=== PATIENT | male | born 1995 | race Caucasian/White ===

== ENCOUNTER 2019-01-30 14:45 | Observation (INO) ==
[2019-01-30] MEDS ORDERED: Isovue-370 500 ML BOTTLE IVP ONE (18:03)
[2019-01-30] MEDS ORDERED: ceFAZolin 1,000 MG in Water for inj. (sterile) 20 ML 10 ML IVP ONE (18:05)
--- NOTE | 2019-01-30 18:09 | Emergency Department Note ---
Disposition Clinical Impression: Cellulitis Qualifiers: Site of cellulitis: unspecified site Qualified Code(s): L03.90 - Cellulitis, unspecified Disposition: Admitted As Inpatient Condition: Good Extremity Problem HPI - General Chief complaint: ED Extremity Problem,Nontraumatic Stated complaint: left arm cellulitis Time Seen by Provider: 01/30/19 17:54 Source: patient Limitations: no limitations Nursing Notes Reviewed: Yes Vital Signs Reviewed: Yes - History of Present Illness HPI Narrative: The patient presented for evaluation of left upper extremity swelling and cellulitis. I did evaluate this patient [address] patient on Keflex and Bactrim. The patient's tetanus was updated at this time. The markings have significantly increased from previous encircling. Patient is now having a fever. Patient is not tachycardic. Patient is not having nausea or vomiting. Patient is not having other significant signs of infection. Patient does have a fullness to this area. Previous abscess was drained by resident physician to allow for drainage. Patient will undergo CT scan to rule out further abscess or consultations. Patient will receive IV antibiotics and blood cultures. Patient will be admitted for further management of cellulitis failed outpatient manageme nt. Pain Scale: 1 - Related Data Previous Rx's Medication Instructions Recorded Sulfamethoxazole/Trimeth DS 1 each PO BID 7 Days #14 tablet 01/28/19 [Bactrim DS] cephALEXin [Keflex] 500 mg PO QID 7 Days #28 capsule 01/28/19 Allergies Allergy/AdvReac Type Severity Reaction Status Date / Time No Known Allergies Allergy Verified 04/29/18 13:01 All systems ED: reviewed and negative except as stated. Review of Systems: As Per HPI Constitutional: Reports: fever, chills. Denies: weakness ENT ED: Denies: congestion Cardiovascular: Denies: chest pain, palpitations Respiratory: Denies: cough, dyspnea Gastrointestinal: Denies: abdominal pain, nausea Musculoskeletal: Denies: back pain Integumentary: Reports: other (Cellulitis with possible underlying abscess) Endocrine: Denies: fatigue Past Medical History - Past Medical History Medical history: Reports: no medical history - Social History Smoking Status: Unknown if ever smoked Smokeless Tobacco Status: Yes Alcohol use: Reports: occasionally Drug use: Reports: none Physical Exam General appearance: NAD, conversant Eyes: anicteric sclerae, moist conjunctivae HENT: Atraumatic; oropharynx clear with moist mucous membranes Neck: Normal appearance; Trachea midline Chest: Symmetrical chest rise; No respiratory distress Extremities: Cellulitis involving the ventral aspect of the entire left lower forearm extending to the proximal lower arm as well. No involvement of the h and. Neurovascularly intact with equal radial pulses and preserved network intern strength. Skin: Normal temperature, turgor and texture; no rash, ulcers or subcutaneous nodules Psych: Appropriate mood and affect Neuro: Awake and alert - General Limitations: no limitations General appearance: alert, in no apparent distress Course Course Narrative: Failed I&D and outpatient management of cellulitis. Tetanus updated 2 days ago. Patient be admitted for IV antibiotics. Ancef and vancomycin ordered. Vital Signs Temperature 97.8 F 01/30/19 15:08 Pulse Rate 75 01/30/19 15:08 Respiratory Rate 18 01/30/19 15:08 Blood Pressure 124/74 01/30/19 15:08 O2 Sat by Pulse Oximetry 100 01/30/19 15:08 Temperature 98.7 F 01/30/19 23:13 Pulse Rate 71 01/30/19 23:13 Respiratory Rate 18 01/30/19 23:13 Blood Pressure 118/68 01/30/19 23:13 O2 Sat by Pulse Oximetry 99 01/30/19 23:13 Oxygen Delivery Oxygen Delivery Room Air Extremity Problem, Nontraumati - Medical Records Medical records reviewed: Yes I reviewed the patient's medical records. - Lab Data Lab results reviewed: Yes I reviewed the patient's lab results. Result diagrams: 01/30/19 18:13 01/30/19 18:13 Lab Results 01/30/19 01/30/19 Range/Units 18:13 18:13 WBC 11.1 (4.3-11.1) K/mcL RBC 4.79 (4.19-5.50) M/mcL Hgb 14.7 (12.9-16.9) g/dL Hct 43.5 (37.5-50.1) % MCV 90.8 (83.0-100.0) fL MCH 30.7 (28.0-33.3) pg MCHC 33.8 (31.6-35.5) g/dL RDW 11.9 (11.5-14.5) % Plt Count 81 L (140-400) K/mcL MPV 10.8 (9.4-12.4) fL Immature Gran % 0.5 (0-4) % Seg Neutrophils % 70.1 % Lymphocytes % 19.6 % Monocytes % 8.3 % Eosinophils % 0.9 % Basophils % 0.6 % Neutrophils # 7.8 (1.6-8.9) K/mcL Lymphocytes # 2.2 (0.6-4.6) K/mcL Monocytes # 0.9 (0.0-1.3) K/mcL Eosinophils # 0.1 (0.0-0.6) K/mcL Basophils # 0.1 (0.0-0.2) K/mcL Sodium 139 (136-145) mEq/L Potassium 4.0 (3.5-5.1) mEq/L Chloride 103 (98-107) mEq/L Carbon Dioxide 26 (23-29) mEq/L BUN 10 (6-20) mg/dL Creatinine 1.14 (0.70-1.30) mg/dL Est GFR ( Amer) > 60 (> 60) Est GFR (Non-Af Amer) > 60 (> 60) BUN/Creatinine Ratio 9 (6-26) Glucose 95 (70-105) mg/dL Calculated Osmolality 287 (280-300) Calcium 9.5 (8.6-10.3) mg/dL - Radiology Data Radiology results reviewed: Yes I reviewed the patient's radiology results. Upper Extremity CT 01/30/19 18:03 IMPRESSION: 1. Subcutaneous edema involving the soft tissues which is most pronounced at the proximal to mid forearm. Correlate clinically for cellulitis. No organized drainable fluid collection identified. No evidence for subcutaneous gas. 2. No acute osseous abnormality. D/ / Sam León MD / Sam León MD Interpreting Provider: Sam León MD
[2019-01-30 18:25] LABS: Basophils # 0.1 K/mcL (0.0-0.2); Basophils % 0.6 %; Eosinophils # 0.1 K/mcL (0.0-0.6); Eosinophils % 0.9 %; Hematocrit 43.5 % (37.5-50.1); Hemoglobin 14.7 g/dL (12.9-16.9); Immature Granulocytes % 0.5 % (0-4); Lymphocytes # 2.2 K/mcL (0.6-4.6); Lymphocytes % 19.6 %; Mean Corpuscular HGB Conc 33.8 g/dL (31.6-35.5); Mean Corpuscular Hemoglobin 30.7 pg (28.0-33.3); Mean Corpuscular Volume 90.8 fL (83.0-100.0); Mean Platelet Volume 10.8 fL (9.4-12.4); Monocytes # 0.9 K/mcL (0.0-1.3); Monocytes % 8.3 %; Neutrophils # 7.8 K/mcL (1.6-8.9); Red Blood Count 4.79 M/mcL (4.19-5.50); Red Cell Distribution Width 11.9 % (11.5-14.5); Segmented Neutrophils % 70.1 %
[2019-01-30 18:27] LABS: Platelet Count 81 K/mcL (140-400)
[2019-01-30 18:45] LABS: BUN/Creatinine Ratio 9 (6-26); Blood Urea Nitrogen 10 mg/dL (6-20); Calcium 9.5 mg/dL (8.6-10.3); Carbon Dioxide 26 mEq/L (23-29); Chloride 103 mEq/L (98-107); Glucose 95 mg/dL (70-105); Osmolality,Calculated 287 (280-300); Sodium 139 mEq/L (136-145); eGFR For Non-African Americans > 60 (> 60)
[2019-01-30] MEDS ORDERED: traMADol 50 MG TABLET PO PRN (20:48)
[2019-01-30] MEDS ORDERED: *HR* OxyCODONE Immed Rel 5 MG TABLET PO PRN (20:48)
[2019-01-30] MEDS ORDERED: Naloxone 0.4 MG/ML INJ IVP PRN (20:48)
[2019-01-30] MEDS ORDERED: Acetaminophen 325 MG TABLET PO PRN (20:48)
--- NOTE | 2019-01-30 21:05 | Internal Med History&Physical ---
Date of Encounter: 01/30/19 Time of Encounter: 21:03 Internal Medicine - H&P: HPI Chief complaint: arm pain Admitted From: Home Plans for Post Hospital Care: Home History of present illness: John Pickett is a 23 year old man who was seen 2 days ago in the ER for cellulitis of the ventral aspect of his left forearm after cutting himself with a box-cutter, Rx cephalexin & TMP/SMX after having bedside I&D done. No cultures were sent on the purulent material. He returns now with increased swelling and inflammatory signs extending past the previous markings. He also now reports subjective fever. Lab work is grossly within normal limits. Blood cultures were obtained and CT as reviewed by me did not show focal collections. He was given cefazolin and vancomycin. He is now admitted for failure of outpatient therapy. Family history reviewed and found non-contributory. Vitals: Reviewed General: Well-developed white M in NAD. Skin: Warm and supple. HEENT: Moist mucous membranes. No conjunctivae pallor. Neck: No lymphadenopathy. No JVD. No carotid bruits. No palpable thyroid. Chest: Normal thoracic expansion. Normal breath sounds. Clear to auscultation. Heart: Normal S1 & S2; rhythmic. No rubs or murmurs. Abdomen: Non-distended, soft and non-tender to palpation. No peritoneal reaction. Extremities: Left forearm with extensive erythema and warmth with a central monet ration in which there is a 1cm incision. Erythema extends to the flexor aspect of the wrist and to the distal humerus. Normal distal pulses. Neurological: Awake, alert and oriented to person, place and time. No focal deficits. Psych: Affect appropriate. Assessment/Plan Purulent cellulitis: Likely MRSA in etiology. Unfortunately drainage sample cultures were not sent from the incision. Will follow the blood cultures. Keep arm elevated above chest level. Analgesics as needed. High dose vancomycin will be continued. Monitor for extension or regression from the markings. DVT prophylaxis: SubQ heparin ordered. Past Med Surg Social Fam HX - Past Medical History Medical history: no medical history - Social History Smoking Status: Unknown if ever smoked Smokeless Tobacco Status: Yes Alcohol use: occasionally Drug use: none Internal Medicine - H&P: Meds Sulfamethoxazole/Trimeth DS [Bactrim DS] 1 each PO BID 7 Days #14 tablet 01/28/19 [Rx] cephALEXin [Keflex] 500 mg PO QID 7 Days #28 capsule 01/28/19 [Rx] Allergy/AdvReac Type Severity Reaction Status Date / Time No Known Allergies Allergy Verified 04/29/18 13:01 All Systems PM: A 10-system review of systems was performed and is negative for pertinent findings except as documented above in the HPI. - Constitutional Vitals: Temp Pulse Resp BP Pulse Ox 97.8 F 72 16 118/65 100 01/30/19 15:08 01/30/19 20:07 01/30/19 20:07 01/30/19 20:07 01/30/19 20:07 Exam: . Internal Med - H&P Results - Labs CBC & Chem 7: 01/30/19 18:13 01/30/19 18:13 Labs: Short CBC 01/30/19 Range/Units 18:13 WBC 11.1 (4.3-11.1) K/mcL Hgb 14.7 (12.9-16.9) g/dL Hct 43.5 (37.5-50.1) % Plt Count 81 L (140-400) K/mcL Neutrophils # 7.8 (1.6-8.9) K/mcL BMP 01/30/19 18:13 Sodium 139 Potassium 4.0 Chloride 103 Carbon Dioxide 26 BUN 10 Creatinine 1.14 Glucose 95 Calcium 9.5 - Impressions ITS Impressions Upper Extremity CT 01/30/19 18:03 IMPRESSION: 1. Subcutaneous edema involving the soft tissues which is most pronounced at the proximal to mid forearm. Correlate clinically for cellulitis. No organized drainable fluid collection identified. No evidence for subcutaneous gas. 2. No acute osseous abnormality. D/ / Sam León MD / Sam León MD Interpreting Provider: Sam León MD - Time Spent With Patient Total time spent is greater than 50% in coordination of care (as documented) at patient's floor/unit and/or counseling patient: Greater than 35 minutes
[2019-01-30] MEDS: Ringers Solution, Lactated 1,000 ML IVC SCH (22:10)
[2019-01-31] MEDS: *HR* Heparin 5,000 UNIT/ML VIAL SQ SCH ×2 (05:55→17:35)
[2019-01-31] MEDS: Ringers Solution, Lactated 1,000 ML IVC SCH (05:59)
[2019-01-31 07:49] LABS: Immature Granulocytes % 0.3 % (0-4)
[2019-01-31 07:51] LABS: Basophils # 0.1 K/mcL (0.0-0.2); Eosinophils # 0.2 K/mcL (0.0-0.6); Eosinophils % 2.5 %; Hematocrit 39.5 % (37.5-50.1); Hemoglobin 13.2 g/dL (12.9-16.9); Immature Platelets 6.7 % (1.1-6.1); Lymphocytes # 1.9 K/mcL (0.6-4.6); Lymphocytes % 26.1 %; Mean Corpuscular HGB Conc 33.4 g/dL (31.6-35.5); Mean Corpuscular Hemoglobin 30.8 pg (28.0-33.3); Mean Corpuscular Volume 92.1 fL (83.0-100.0); Mean Platelet Volume 11.4 fL (9.4-12.4); Monocytes # 0.7 K/mcL (0.0-1.3); Monocytes % 10.2 %; Neutrophils # 4.3 K/mcL (1.6-8.9); Red Blood Count 4.29 M/mcL (4.19-5.50); Red Cell Distribution Width 12.1 % (11.5-14.5); Segmented Neutrophils % 59.9 %
[2019-01-31 07:55] LABS: Platelet Count 82 K/mcL (140-400)
[2019-01-31 07:57] LABS: Prothrombin Time 11.4 Seconds (9.4-12.1)
[2019-01-31 08:00] LABS: Activated Partial Thrombo Time 29.1 Seconds (26.0-36.0)
[2019-01-31 08:18] LABS: BUN/Creatinine Ratio 10 (6-26); Blood Urea Nitrogen 11 mg/dL (6-20); Calcium 8.8 mg/dL (8.6-10.3); Carbon Dioxide 28 mEq/L (23-29); Chloride 105 mEq/L (98-107); Glucose 142 mg/dL (70-105); Osmolality,Calculated 292 (280-300); Potassium 3.8 mEq/L (3.5-5.1); Sodium 140 mEq/L (136-145); eGFR For Non-African Americans > 60 (> 60)
[2019-01-31] MEDS ORDERED: Aminoglycoside Consult 1 EACH MC ONE (13:57)
--- NOTE | 2019-02-01 05:12 | Internal Med Progress Note ---
Hospitalist Progress Note - Encounter Date of Encounter: 01/31/19 Time of Encounter: 19:00 - Subjective Interval History: SUBJECTIVE: The patient is better. There is less redness and swelling on the anterior aspect of his left forearm. He tells me, that the pain is not under control. Denies fever and chills. OBJECTIVE: Skin: There is an area of redness and swelling located in the central portion of his left forearm. It is decreased in size, when comparing to the marking left from yesterday. There is no drainage from a small laceration done yesterday in the emergency department. The rest of his skin is normal in appearance. ENMT: Oral/pharyngeal mucosa is normal in appearance. Eyes: Sclera is white. There is no discharge from eyes. Respiratory: Normal breath sounds; no crackles or wheezes. CV: Heart is regular; no gallop or murmur. GI: Abdomen is soft and not tender. There is no palpable mass or visceromegaly. Neuro: There is no focal deficits. ADDITIONAL DATA: WBC is 7.2 thousand; 11.1 thousand yesterday. BMP is normal. ASSESSMENT AND PLAN: Cellulitis of left forearm. Triggered by a cut from a cook box filler. I will continue IV vancomycin. Blood cultures are pending. I would increase his dose of oxycodone. DISPOSITION: He will be discharged home in 1-2 days. - Exam Vitals: Temp Pulse Resp BP Pulse Ox 97.7 F 54 18 115/64 98 02/01/19 04:01 02/01/19 04:01 02/01/19 04:01 02/01/19 04:01 02/01/19 04:01 Exam: xx - Time Spent with Patient Total time spent is greater than 50% in coordination of care (as documented) at patient's floor/unit and/or counseling patient: 25 - 35 minutes Plan of Care Discussed with: patient Internal Medicine: Result - Labs CBC & Chem 7: 01/31/19 07:16 01/31/19 07:16 Labs: Short CBC 01/31/19 Range/Units 07:16 WBC 7.2 (4.3-11.1) K/mcL Hgb 13.2 D (12.9-16.9) g/dL Hct 39.5 (37.5-50.1) % Plt Count 82 L (140-400) K/mcL Neutrophils # 4.3 (1.6-8.9) K/mcL BMP 01/31/19 07:16 Sodium 140 Potassium 3.8 Chloride 105 Carbon Dioxide 28 BUN 11 Creatinine 1.08 Glucose 142 H Calcium 8.8 - ABG Interpretation ABG results: PT/INR, D-dimer PT 11.4 Seconds (9.4-12.1) 01/31/19 07:16 Consult Discharge Plan - Plan Referrals: NONE,PCP [Primary Care Provider] -
[2019-02-01] MEDS: *HR* Heparin 5,000 UNIT/ML VIAL SQ SCH (06:00)
[2019-02-01 10:53] VITALS: BP 116/70
--- NOTE | 2019-02-01 13:15 | Discharge Summary ---
Orders not resulted at time of discharge: Pending orders 01/30/19 18:08 Culture,Blood [] Stat Date of Encounter: 02/01/19 Time of Encounter: 13:12 - Discharge Diagnosis (1) Cellulitis Priority: Primary Status: Acute Qualifiers: Site of cellulitis: extremity Site of cellulitis of extremity: upper extremity Laterality: left Qualified Code(s): L03.114 - Cellulitis of left upper limb (2) Abscess of skin or subcutaneous tissue Priority: Primary Status: Acute Qualifiers: Site of cutaneous abscess: extremity Site of cutaneous abscess of extremity: upper extremity Laterality: left Qualified Code(s): L02.414 - Cutaneous abscess of left upper limb (3) Thrombocytopenia Priority: Secondary Status: Chronic Hospital course: HOSPITAL COURSE: The patient is a 23-year-old male developed severe cellulitis of the ventral aspect of his left forearm, after cutting himself with a box catheter. He was seen in our emergency room 2 days prior to this admission; sent home with prescription for cephalexin and TMP/SMX. He did not work for him; came here for admission. Incision and drainage of developing abscess was done in the emergency room. No cultures were taken. We put him on IV vancomycin. He dramatically improved during this short hospitalization. There is only mild/moderate swelling remaining. No fever or chills is observed. His blood cultures are negative for bacteremia. He has mild chronic thrombocytopenia. We decided to continue further therapy at home; with oral clindamycin. CONDITION AT DISCHARGE: He feels good. He has only mild pain in the area of left forearm Denies nausea and vomiting. Skin: Free of rash and discoloration. Respiratory: Normal breath sounds with no crackles and wheezes bilaterally. CV: Heart is regular with no gallop or murmur. GI: Abdomen is flat and soft with no palpable mass or visceromegaly. Neuro exam: There is no focal deficits. Normal speech, swallowing and gait. SEE DISCHARGE ORDERS/MEDICATIONS He will be taking clindamycin at 300 mg every 6 hours for 7 days. Discharge discussed with: patient - Time Spent with Patient Total time spent providing and/or coordinating discharge services: Time spent: Greater than 30 minutes (35 minutes...) - Discharge Medications Prescriptions: New Clindamycin HCl 300 mg PO Q6H 7 Days #28 capsule Discontinued cephALEXin [Keflex] 500 mg PO QID 7 Days #28 capsule Sulfamethoxazole/Trimeth DS [Bactrim DS] 1 each PO BID 7 Days #14 tablet Home Medications: Clindamycin HCl 300 mg PO Q6H 7 Days #28 capsule 02/01/19 [Rx] Allergies/Adverse Reactions: Allergy/AdvReac Type Severity Reaction Status Date / Time No Known Allergies Allergy Verified 04/29/18 13:01 Date of admission: 01/30/19 22:04 Primary care physician: PCP NONE Discharging clinician: Philip Petty Anticipated date of discharge: 02/01/19 - Constitutional Vitals: Temp Pulse Resp BP Pulse Ox 97.8 F 57 16 116/70 98 02/01/19 10:52 02/01/19 10:52 02/01/19 10:52 02/01/19 10:52 02/01/19 10:52 General appearance: Present: A&O X 3, no acute distress, answers questions appropriately Exam: xx - Patient Status Disposition: Home, Self-Care Condition: Good Functional capacity at discharge: independent ambulation Overall status at discharge: patient is progressing back to baseline - Discharge Instructions Instructions: Clindamycin (By mouth), Hydrocodone/Acetaminophen (By mouth), Cellulitis (DC) Follow Up With: NONE,PCP [Primary Care Provider] - Additional Instructions: TO KEEP RIGHT UPPER EXTREMITY ELEVATED FOR THE NEXT A FEW DAYS... SICK LEAVE: 01/30-02/03... THE PATIENT IS TO MY CELL PHONE FOR BLOOD CULTURES RESULTS -- TOMORROW AFTERNOON... - Diet and Activity Activity: increase activity as tolerated Diet: advance to your usual diet
== END 2019-02-01 13:58 | disposition home or self-care (01) ==
LOC: EMEROOARM 14:45 → 2ANU 14:45 → SUATTDRO 22:04 → 2ANU 22:26
PROVIDERS: ADMIT Internal Medicine; ATTEND Internal Medicine